=== PATIENT | female | born 2000 | race Hispanic/Latino ===

== ENCOUNTER 2023-08-29 16:23 | Emergency (ER) | payer BC, SELFPAY ==
--- NOTE | ~2023-08-29 | CT_ITS ---
EXAMINATION: CTA chest PE protocol DATE: 08/29/2023 21:56 INDICATION: Persistant tachycardia and elevated dimer TECHNIQUE: Computed tomography angiography (CTA) of the chest was performed with 100 mL Omnipaque-350 intravenous contrast timed to evaluate the pulmonary arteries. Coronal maximum intensity projection 3D-reconstructions were created by the technologist. The dose-length product (DLP) was 996.58 mGy-cm. Automated exposure control and iterative reconstruction technique were employed. COMPARISON: X-ray chest, same date. FINDINGS: Lung parenchyma and airways: Clear. Pleura: Unremarkable. Thoracic inlet, axillae and chest wall: Unremarkable. Thoracic aorta: Normal. Mediastinum: Normal. Heart and pericardium: Mildly enlarged. Coronary artery calcifications: Absent. Upper abdomen: Multiple enlarged upper abdominal lymph nodes. Bones: No acute osseous finding. Pulmonary arteries: Study quality: Study mildly limited by motion, quantum mottle and beam hardening such that subsegmental arteries are poorly evaluated. No central or segmental pulmonary emboli detect ed. IMPRESSION: No CT evidence of acute central or segmental pulmonary embolus. Limited evaluation of subsegmental pu lmonary arteries. No acute finding in the chest. Upper abdominal lymphadenopathy. Reviewed, dictated and finalized at location K. [place] MANAGER IMPRESSION: No CT evidence of acute central or segmental pulmonary embolus. Limited evaluat ion of subsegmental pulmonary arteries. No acute finding in the chest. Upper abdominal lymphadenopathy.
--- NOTE | ~2023-08-29 | XR_ITS ---
EXAMINATION: XR chest 1V portable Exam Date/Time: 08/29/2023 19:10 DATABASE CONSULTANT HISTORY: palpitations W/ TACHYCARDIA BAIL ATTACHER Comparison: None. RESULT: Lines, tubes, and devices: None. Lungs and pleura: Clear. Cardiomediastinal silhouette: Normal. Other: No acute osseous or upper abdominal finding. IMPRESSION: No acute cardiopulmonary process. Reviewed, dictated and finalized at location K. BASE CONSULTANT
[2023-08-29 16:29] VITALS: BP 134/82; PULSE 122; RESP 16; TEMP 37.1; O2SAT 98
[2023-08-29 18:56] VITALS: PULSE 114; O2SAT 97
[2023-08-29 18:57] VITALS: BP 159/82; PULSE 113; RESP 19; O2SAT 100
--- NOTE | 2023-08-29 19:07 | ECG_ITS ---
Measurements Intervals [place] Rate: 107 P: 24 TN: 159 QRS: 50 QRSD: 86 T: 32 QT: 320 QTc: 427 Interpretive Statements SINUS TACHYCARDIA ABNORMAL RHYTHM ECG NO PREVIOUS ECG AVAILABLE FOR COMPARISON Electronically Signed On 08-30-2023 12:25:46 ETIQUETTE COACH by Roxy Zavala M.D.
--- NOTE | 2023-08-29 20:09 | ED.GENADULT ---
HPI - General Adult General Chief complaint: Arrhythmia/Palpitations Stated complaint: increased HR Time Seen by Provider: 08/29/23 18:56 History of Present Illness HPI narrative: This is a 23-year-old female ED with chief complaint of tachycardia. Patient says she has been feeling cough and congestion for 1 week. Denies fever chills nausea vomiting diarrhea chest pain difficulty breathing abdominal pain or urinary symptoms. Patient went to an urgent care earlier today because she had swelling of her hands and feet and a diffuse rash. She Claritin and it resolved. She was sent to the hospital for persistent tachycardia. At that time viral swabs and strep were negative. Related Data Allergies Allergy/AdvReac Type Severity Reaction Status Date / Time amoxicillin Allergy Swelling Verified 08/29/23 18:53 clavulanic acid Allergy Swelling Verified 08/29/23 18:53 [From Augmentin] Exam Narrative: APPEARANCE: No apparent distress. Head: atraumatic. EYES: EOMI, NOSE: Atraumatic NECK: Trachea midline RESPIRATORY: No increased rate of breathing CTAB CARDIOVASCULAR: Tachycardic no pitting edema ABDOMINAL: Non-distended soft nontender MUSCULOSKELETAl: No obvious deformities NEURO: Alert. Moving 4/4 extremities SKIN:: Warm, dry. Normal color PSYCHIATRIC: Normal affect Course Vital Signs Vital signs: Vital Signs Temperature 98.8 F 08/29/23 16:29 Pulse Rate 122 H 08/29/23 16:29 Respiratory Rate 16 08/29/23 16:29 Blood Pressure 134/82 08/29/23 16:29 Pulse Oximetry 98 08/29/23 16:29 Temperature 98.8 F 08/29/23 16:29 Pulse Rate 108 H 08/29/23 21:28 Respiratory Rate 15 08/29/23 21:28 Blood Pressure 159/82 H 08/29/23 18:57 Pulse Oximetry 100 08/29/23 21:28 Oxygen Delivery Room Air 08/29/23 18:56 Medical Decision Making MDM Narrative Medical decision making narrative: -Course: 23-year-old female sent from urgent care for persistent tachycardia. Elevated D-dimer. CT PE was negative. Heart rate improved with NSAIDs and IV fluids. Symptoms likely due to dehydration and URI. Patient discharged with primary care follow-up -DDX includes but is not limited to: Viral illness pneumonia PE dehydration -Co-morbidities complicating care: Obesity -Social determinants of health: [employer] student, studying social work -Independent interpretation of studies: labs reviewed. elevated D-dimer 1.5. CT PE unremarkable. Independent EKG interpretation: Rhythm [sinus], Rate 107], [place] -[normal], [place] -[normal], QRS [narrow], QTC [normal], T waves -[negative for concerning inversions], ST Segments - [Negative for concerning elevations] Final interpretations: sinus tachycardia -Interventions: 2 L normal saline, Toradol Tylenol -Shared decision making / Disposition: discharge -RX Motrin Tylenol Vital Signs Vital Signs: Vital Signs Temperature 98.8 F 08/29/23 16:29 Pulse Rate 122 H 08/29/23 16:29 Respiratory Rate 16 08/29/23 16:29 Blood Pressure 134/82 08/29/23 16:29 Pulse Oximetry 98 08/29/23 16:29 Temperature 98.8 F 08/29/23 16:29 Pulse Rate 108 H 08/29/23 21:28 Respiratory Rate 15 08/29/23 21:28 Blood Pressure 159/82 H 08/29/23 18:57 Pulse Oximetry 100 08/29/23 21:28 Oxygen Delivery Room Air 08/29/23 18:56 Lab Data 08/29/23 20:50 08/29/23 20:50 Labs: Lab Results 08/29/23 08/29/23 Range/Units 20:50 21:18 WBC 13.0 H (4.5-10.0) K/mm3 RBC 4.52 (4.2-5.4) M/mm3 Hgb 12.5 (12.0-15.0) g/dL Hct 40.3 (37.0-47.0) % MCV 89.2 (80-100) fl MCH 27.7 (26-34) pg MCHC 31.0 L (32-36) g/dl RDW 14.3 (11.5-14.5) % Plt Count 360 (150-375) k/mm3 MPV 10.0 (7.4-10.4) fl Immature Gran % (Auto) 0.2 (0-0.5) % Neut % (Auto) 84.8 H (45.5-73.1) % Lymph % (Auto) 11.5 L (18.3-44.2) % [place] % (Auto) 3.2 (2.6-8.5) % Eos % (Auto) 0.1 (0-4.4) % Baso % (Auto) 0.2 (0.2-1.2) %
[2023-08-29 21:02] LABS: Basophils Percent Auto 0.2 % (0.2-1.2); Eosinophils Percent Auto 0.1 % (0-4.4); Hematocrit 40.3 % (37.0-47.0); Hemoglobin 12.5 g/dL (12.0-15.0); Immature Granulocyte Absolute 0.03 K/mm3 (0.00-0.031); Immature Granulocyte Percent A 0.2 % (0-0.5); Lymphocytes Absolute Auto 1.49 K/mm3 (0.9-3.2); Lymphocytes Percent Auto 11.5 % (18.3-44.2); Mean Corpuscular Hemoglobin 27.7 pg (26-34); Mean Corpuscular Volume 89.2 fl (80-100); Monocytes Absolute Auto 0.4 K/mm3 (0.1-0.6); Monocytes Percent Auto 3.2 % (2.6-8.5); Neutrophils Percent Auto 84.8 % (45.5-73.1); Platelet Count Result 360 k/mm3 (150-375); Red Blood Count 4.52 M/mm3 (4.2-5.4); Red Cell Distribution Width 14.3 % (11.5-14.5)
[2023-08-29 21:11] LABS: Alanine Aminotransferase 31 U/L (6-35); Albumin Level 4.3 g/dL (3.5-5.1); Alkaline Phosphatase 89 U/L (38-126); Anion Gap 7 mmol/L (8-16); Aspartate Amino Transferase 29 U/L (14-36); Bilirubin,Total 0.9 mg/dL (0.2-1.3); Blood Urea Nitrogen 11 mg/dL (7-17); Calcium 9.1 mg/dL (8.4-10.2); Carbon Dioxide 28 mmol/L (22-30); Chloride 98 mmol/L (98-107); Estimated CRCL calculation 138 ml/min; Estimated Glomerular Filt Rate > 60; Glucose 94 mg/dL (65-110); Potassium 3.8 mmol/L (3.4-5.0); Sodium 133 mmol/L (137-145)
[2023-08-29] MEDS: SODIUM CHLORIDE 0.9% IV 2,000 ML 999 ML IV CONT (21:17)
[2023-08-29] MEDS: ACETAMINOPHEN 500 MG TABLET 1000 MG PO (21:17)
[2023-08-29] MEDS: KETOROLAC 15 MG/ML VIAL (*BKC) IV PUSH (21:17)
[2023-08-29 21:24] LABS: D Dimer 1.51 ug/mL (<0.48)
[2023-08-29 21:28] VITALS: PULSE 108; RESP 15; O2SAT 100
[2023-08-29 21:29] LABS: NT Pro B Type Natriuretic Pept < 20 pg/mL (19.9-100); Troponin I < 0.012 ng/mL (0.000-0.034)
[2023-08-29 21:31] LABS: Appearance Urine Clear (Clear); Bacteria Urine None Seen /hpf; Bilirubin Urine Negative (Negative); Blood Urine 1+ (Negative); Color Urine Yellow (Yellow); Glucose Urine UA Negative (Negative); Ketones Urine Negative (Negative); Leukocyte Esterase Ur Negative LEU/UL (Negative); Nitrate Urine Negative (Negative); Non Pathogenic Casts 0-2; Protein Urine Negative (Negative); RBC Urine 0-2 /hpf (0-2); Specific Grav Ur 1.016 (1.001-1.035); Squamous Epithelial Cell Urine Occasional /hpf (Few); Urobilinogen Urine 0.2 mg/dL (<2.0); WBC Urine 0-5 /hpf; pH Urine 7.5 (5.0-9.0)
[2023-08-29 21:32] LABS: Add Urine Microscopic? YES
[2023-08-29 22:44] VITALS: BP 142/68; PULSE 100; RESP 15; O2SAT 98
[2023-08-29 23:21] VITALS: BP 144/68; PULSE 96; RESP 15; O2SAT 100
== END 2023-08-29 23:22 | disposition home or self-care (01) ==
PROVIDERS: Emergency Provider Emergency Medicine
DX: J06.9 Acute upper respiratory infection, unspecified (principal); E86.0 Dehydration
CPT/HCPCS: 36415; 71045; 71275; 80053; 81001; 81025; 83880; 84484; 85025; 85380; 93005; 96361; 96374; 99284; A9270; J1885; J7030; Q9967